=== PATIENT | male | born 1955 | race Caucasian/White ===

== ENCOUNTER 2016-08-15 16:16 | Emergency (ER) | payer OTHER ==
[~2016-08-15] VITALS: Ht 188 cm; Wt 88.2 kg
[2016-08-15 16:43] VITALS: BP 133/85
[2016-08-15] MEDS ORDERED: DIPH,PERTUSS(ACELL),TET VAC/PF 0.5 ML IM-VACC ONE ×2 (17:00→17:06)
[2016-08-15] MEDS ORDERED: LIDOCAINE 1%, 20ML INFIL ONE (17:00)
[2016-08-15] MEDS ORDERED: LIDOCAINE 1%, 20ML ONE (17:06)
[2016-08-15] MEDS ORDERED: BACITRACIN ZINC OINT 500U/GM, 0.9 GM ONE (17:32)
== END 2016-08-15 18:26 | disposition home or self-care (01) ==
LOC: ED 18:00
DX: S61.216A Laceration without foreign body of right little finger without damage to nail, initial encounter (principal); S61.211A Laceration without foreign body of left index finger without damage to nail, initial encounter; W25.XXXA Contact with sharp glass, initial encounter; Y93.89 Activity, other specified; Y92.89 Other specified places as the place of occurrence of the external cause; Y99.9 Unspecified external cause status
CPT/HCPCS: 12001; 90471; 90715

== ENCOUNTER 2016-08-23 13:33 | Emergency (ER) | payer OTHER ==
[~2016-08-23] VITALS: Ht 189.2 cm; Wt 89.0 kg
[2016-08-23 13:37] VITALS: BP 132/87
== END 2016-08-23 14:16 | disposition home or self-care (01) ==
LOC: ED 13:55
DX: Z48.02 Encounter for removal of sutures (principal)
CPT/HCPCS: 99281